=== PATIENT | male | born 1960 | race African-American/Black ===

== ENCOUNTER → 2016-07-13 | Outpatient (CLI) | payer OTHER ==
[2016-07-13 12:06] LABS: ABSOLUTE EOSINOPHILS # (AUTO) 0.2 10^3/uL (0.0-0.6); ABSOLUTE LYMPHOCYTES (AUTO) 1.4 10^3/uL (0.5-4.7); ABSOLUTE MONOCYTES (AUTO) 1.7 10^3/uL (0.1-1.4); BASOPHILS % (AUTO) 0.4 % (0-2); EOSINOPHILS % (AUTO) 1.7 % (0-6); HEMATOCRIT 44.8 % (37.9-51.0); HGB HCT DIFFERENCE 0.2; MEAN CORPUSCULAR HEMOGLOBIN 28.3 pg (27.0-33.4); MEAN CORPUSCULAR HGB CONC 33.5 g/dL (32.0-36.0); MEAN CORPUSCULAR VOLUME 85 fl (80-97); MONOCYTES % (AUTO) 16.2 % (3-13); RED BLOOD COUNT 5.29 10^6/uL (4.35-5.55); RED CELL DISTRIBUTION WIDTH 13.5 % (11.5-14.0); SEGMENTED NEUTROPHILS % (AUTO) 67.7 % (42-78); WHITE BLOOD COUNT 10.3 10^3/uL (4.0-10.5)
[2016-07-13 12:43] LABS: ALANINE AMINOTRANSFERASE 38 U/L (21-72); ALBUMIN 3.6 g/dL (3.5-5.0); ALKALINE PHOSPHATASE 90 U/L (38-126); ANION GAP 11 (5-19); ASPARTATE AMINO TRANSFERASE 22 U/L (17-59); BILIRUBIN,TOTAL 0.7 mg/dL (0.2-1.3); BLOOD UREA NITROGEN 14 mg/dL (7-20); CALCIUM 9.4 mg/dL (8.4-10.2); CARBON DIOXIDE 29 mmol/L (22-30); CHLORIDE 102 mmol/L (98-107); CHOLESTEROL 212.88 mg/dL (0-200); CREATININE RESULT 1.11 mg/dL (0.52-1.25); Direct HDL 46 mg/dL (>40); GLUCOSE 96 mg/dL (75-110); POTASSIUM 3.6 mmol/L (3.6-5.0); SODIUM 142.2 mmol/L (137-145); TOTAL PROTEIN 6.8 g/dL (6.3-8.2); TRIGLYCERIDES 97 mg/dL (<150)
[2016-07-13 12:54] LABS: DIRECT LDL 156 mg/dL (<100)
== END ==
LOC: OD 11:22
DX: I10 Essential (primary) hypertension (principal)
CPT/HCPCS: 36415; 80053; 80061; 83036; 84443; 85025

== ENCOUNTER → 2016-11-13 | Outpatient (CLI) | payer OTHER ==
--- NOTE | 2016-11-13 11:01 | EKG REPORT ---
SEVERITY:- NORMAL ECG - SINUS RHYTHM : Confirmed by: Laurence Zamora MD 13-Nov-2016 11:00:33
== END ==
LOC: CCC 09:22
DX: I10 Essential (primary) hypertension (principal)
CPT/HCPCS: 93005; 93010

== ENCOUNTER → 2017-04-02 | Outpatient (CLI) | payer OTHER ==
--- NOTE | 2017-04-02 09:37 | RADIOLOGY REPORT (SQ) ---
EXAM DESCRIPTION: CHEST PA/LAT COMPLETED DATE/TIME: 04/02/2017 9:14 am REASON FOR STUDY: ASTHMA COMPARISON: 07/06/2014. EXAM PARAMETERS: NUMBER OF VIEWS: two views TECHNIQUE: Digital Frontal and Lateral radiographic views of the chest acquired. RADIATION DOSE: NA LIMITATIONS: none FINDINGS: LUNGS AND PLEURA: No opacities, masses or pneumothorax. No pleural effusion. MEDIASTINUM AND HILAR STRUCTURES: No masses or contour abnormalities. HEART AND VASCULAR STRUCTURES: Heart normal size. No evidence for failure. BONES: No acute findings. HARDWARE: None in the chest. OTHER: No other significant finding. IMPRESSION: NO SIGNIFICANT RADIOGRAPHIC FINDING IN THE CHEST. TECHNICAL DOCUMENTATION: JOB ID: [id number] [email or web address]- All Rights Reserved
== END ==
LOC: RAD 08:56
DX: J45.909 Unspecified asthma, uncomplicated (principal)
CPT/HCPCS: 71020

== ENCOUNTER → 2017-04-23 | Outpatient (CLI) | payer OTHER ==
--- NOTE | 2017-04-23 12:16 | RADIOLOGY REPORT (SQ) ---
EXAM DESCRIPTION: ELBOW LEFT OVER 2 VIEWS COMPLETED DATE/TIME: 04/23/2017 11:56 am REASON FOR STUDY: PAIN IN LEFT ELBOW (M25.522) M25.522 PAIN IN LEFT ELBOW COMPARISON: None. NUMBER OF VIEWS: Four views. TECHNIQUE: AP, lateral, and both oblique radiographic images acquired of the left elbow. LIMITATIONS: None. FINDINGS: MINERALIZATION: Normal. BONES: No acute fracture. JOINT: No elbow joint effusion. 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 SOFT TISSUES: No soft tissue swelling. No foreign body. OTHER: Prominent bony spur at the triceps attachment to the olecranon IMPRESSION: Osteoarthritis left filled well. No acute fracture or malalignment. No joint effusion TECHNICAL DOCUMENTATION: JOB ID: [id number] [employer]- All Rights Reserved
== END ==
LOC: RAD 11:30
DX: M25.522 Pain in left elbow (principal); M19.022 Primary osteoarthritis, left elbow

== ENCOUNTER → 2017-08-25 | Outpatient (CLI) | payer MEDICAID ==
--- NOTE | 2017-08-25 12:54 | RADIOLOGY REPORT (SQ) ---
EXAM DESCRIPTION: KNEE LEFT 4 VIEWS COMPLETED DATE/TIME: 08/25/2017 11:12 am REASON FOR STUDY: PAIN IN RT/LT KNEE M25.561 PAIN IN RIGHT KNEE M25.562 PAIN IN LEFT KNEE COMPARISON: None. NUMBER OF VIEWS: Four views. TECHNIQUE: AP, lateral, and both oblique radiographic images acquired of the left knee. LIMITATIONS: None. FINDINGS: MINERALIZATION: Normal. BONES: No acute fracture or dislocation. Intramedullary calcifications are identified at the level o f the distal femur with the differential possibilities including a bone infarct or enchondroma. Othe r cartilaginous neoplasms cannot be excluded. MRI may be of value for further evaluation JOINT: Degenerative changes are identified at the level of the patella femoral compartment with osorio lar spurring. There is some minimal osteophytic lipping at the level of the medial compartment. SOFT TISSUES: No soft tissue swelling. No radio-opaque foreign body. OTHER: No other significant finding. IMPRESSION: No acute fracture or dislocation. Degenerative changes as noted above. Intramedullary calcifications at the level of the distal femur with differential possibilities as noted above. If f urther workup is deemed clinically warranted I would recommend MRI. Other findings as noted above TECHNICAL DOCUMENTATION: JOB ID: [id number] [employer]- All Rights Reserved Reading location - IP/workstation name: [email or web address]
--- NOTE | 2017-08-25 13:07 | RADIOLOGY REPORT (SQ) ---
EXAM DESCRIPTION: KNEE RIGHT 4 VIEWS COMPLETED DATE/TIME: 08/25/2017 11:12 am REASON FOR STUDY: PAIN IN RT/LT KNEE M25.561 PAIN IN RIGHT KNEE M25.562 PAIN IN LEFT KNEE COMPARISON: Left knee films dated 08/25/2017 NUMBER OF VIEWS: Four views. TECHNIQUE: AP, lateral, and both oblique radiographic images acquired of the right knee. LIMITATIONS: None. FINDINGS: MINERALIZATION: Normal. BONES: No acute fracture or dislocation. Intramedullary calcifications are identified at the level o f the distal femur which are similar in appearance to the left knee. Again the differential possibil ities would include a bone infarct versus enchondroma other cartilaginous neoplasms cannot be complet lizbeth excluded. Again MRI may be of value for further evaluation. JOINT: No effusion. SOFT TISSUES: No soft tissue swelling. No radio-opaque foreign body. OTHER: No other significant finding. IMPRESSION: No acute fracture dislocation. Intramedullary calcifications are identified at the leve l of the distal femur as noted above. If further workup is deemed clinically warranted I would recom mend MRI. Other findings as noted above. TECHNICAL DOCUMENTATION: JOB ID: [id number] [employer]- All Rights Reserved Reading location - IP/workstation name: [email or web address]
== END ==
LOC: OD 10:23
PROVIDERS: ATTEND Family Medicine
DX: M25.561 Pain in right knee (principal); M25.562 Pain in left knee

== ENCOUNTER 2018-02-28 17:20 | Emergency (ER) | payer MEDICAID ==
[2018-02-28] MEDS ORDERED: HYDROCHLOROTHIAZIDE 12.5 MG TABLET PO ONE ×3 (18:55→19:15)
--- NOTE | 2018-02-28 18:59 | ER Document Report ---
ED General - General Chief Complaint: High Blood Pressure Stated Complaint: BLOOD PRESSURE ISSUE Time Seen by Provider: 02/28/18 18:54 TRAVEL OUTSIDE OF THE [place] IN LAST 30 DAYS: No - HPI Patient complains to provider of: Elevated blood pressure medication refill Notes: Patient has been without his hydrochlorothiazide for the last few days is that there is recall of his hydrochlorothiazide. Patient states he has been unable to follow-up with primary care physician for another prescription and was unable to get any further medication from the pharmacy therefore patient came to the ER for further evaluation. States slightly elevated blood pressure however denies any fever chills nausea vomiting diarrhea head pain chest pain abdominal pain. Resting healthy upon my evaluation. - Related Data Allergies/Adverse Reactions: No Known Allergies Allergy (Verified 02/28/18 17:32) Past Medical History - Social History Smoking Status: Unknown if Ever Smoked Family History: Reviewed & Not Pertinent Review of Systems - Review of Systems Constitutional: Other - Hypertension medication refill EENT: No symptoms reported Cardiovascular: No symptoms reported Respiratory: No symptoms reported Gastrointestinal: No symptoms reported Genitourinary: No symptoms reported Male Genitourinary: No symptoms reported Musculoskeletal: No symptoms reported Skin: No symptoms reported Hematologic/Lymphatic: No symptoms reported Neurological/Psychological: No symptoms reported -: Yes All other systems reviewed and negative Physical Exam - Vital signs Vitals: Temp Pulse Resp BP Pulse Ox 98.2 F 56 L 16 167/93 H 98 02/28/18 17:52 02/28/18 17:52 02/28/18 17:52 02/28/18 17:52 02/28/18 17:52 Interpretation: Normal - General General appearance: Appears well, Alert - HEENT Head: Normocephalic, Atraumatic Eyes: Normal Pupils: PERRL - Respiratory Respiratory status: No respiratory distress Chest status: Nontender Breath sounds: Normal Chest palpation: Normal - Cardiovascular Rhythm: Regular Heart sounds: Normal auscultation Murmur: No - Abdominal Inspection: Normal Distension: No distension Bowel sounds: Normal Tenderness: Nontender Organomegaly: No organomegaly - Back Back: Normal, Nontender - Extremities General upper extremity: Normal inspection, Nontender, Normal color, Normal ROM , Normal temperature General lower extremity: Normal inspection, Nontender, Normal color, Normal ROM , Normal temperature, Normal weight bearing. No: Keshawn's sign - Neurological Neuro grossly intact: Yes Cognition: Normal Orientation: AAOx4 Minerva Coma Scale Eye Opening: Spontaneous [place] Coma Scale Verbal: Oriented Minerva Coma Scale Motor: Obeys Commands Bacova Coma Scale Total: 15 Speech: Normal Motor strength normal: LUE, RUE, LLE, RLE Sensory: Normal - Psychological Associated symptoms: Normal affect, Normal mood - Skin Skin Temperature: Warm Skin Moisture: Dry Skin Color: Normal Course - Re-evaluation Re-evalutation: 02/28/18 20:49 Patient was given dose of his hydrochlorothiazide here in a pill to take home. Prescription for soft chlorothiazide was brought to the patient. Patient was discharged on follow-up primary care physician. Patient otherwise asymptomatic hypertension - Vital Signs Vital signs: Temp Pulse Resp BP Pulse Ox 98.2 F 57 L 16 188/96 H 98 02/28/18 19:09 02/28/18 19:09 02/28/18 19:09 02/28/18 19:09 02/28/18 19:09 Discharge - Discharge Clinical Impression: Medication refill Hypertension Qualifiers: Hypertension type: essential hypertension Qualified Code(s): I10 - Essential ( primary) hypertension Disposition: HOME, SELF-CARE Instructions: High Blood Pressure ([facility]), Hydrochlorothiazide ([facility]) Additional Instructions: Please continue your medications as prescribed follow-up with your family physician. Return to ER symptoms worsen. Prescriptions: Hydrochlorothiazide 12.5 mg PO DAILY #30 tablet Forms: Return to Work
[2018-02-28 19:10] VITALS: BP 188/96
== END 2018-02-28 19:06 | disposition home or self-care (01) ==
LOC: ER 17:20
DX: I10 Essential (primary) hypertension (principal)
CPT/HCPCS: 99283

== ENCOUNTER 2018-08-12 20:24 | Emergency (ER) | payer MEDICAID ==
[2018-08-12 20:52] VITALS: BP 158/89
== END 2018-08-13 00:45 | disposition left against medical advice (07) ==
LOC: ER 20:24
DX: Z53.21 Procedure and treatment not carried out due to patient leaving prior to being seen by health care provider (principal); R05 Cough

== ENCOUNTER → 2019-01-04 | Outpatient (CLI) | payer MEDICAID ==
--- NOTE | 2019-01-04 16:31 | RADIOLOGY REPORT (SQ) ---
EXAM DESCRIPTION: FOOT LEFT COMPLETE COMPLETED DATE/TIME: 01/04/2019 4:21 pm REASON FOR STUDY: STRESS FRACTURE, LEFT TOE(S), INITIAL ENCOUNTER FOR FRACTURE M84.378A STRESS FRAC TURE, LEFT TOE(S), INITIAL ENCOUNTER FOR COMPARISON: None. NUMBER OF VIEWS: Three views. TECHNIQUE: AP, lateral and oblique radiographic images acquired of the left foot. LIMITATIONS: None. FINDINGS: MINERALIZATION: Normal. BONES: No acute fracture or dislocation. No worrisome bone lesions. JOINTS: No effusions. SOFT TISSUES: No soft tissue swelling. No foreign body. OTHER: No other significant finding. IMPRESSION: NEGATIVE STUDY OF THE LEFT FOOT. NO RADIOGRAPHIC EVIDENCE OF ACUTE INJURY. TECHNICAL DOCUMENTATION: JOB ID: [id number] [employer]- All Rights Reserved Reading location - IP/workstation name: [email or web address]
== END ==
LOC: OD 15:40
PROVIDERS: ATTEND Podiatrist Foot & Ankle Surgery
DX: M84.378A Stress fracture, left toe(s), initial encounter for fracture (principal)

== ENCOUNTER → 2019-03-07 | Outpatient (CLI) | payer MEDICAID ==
--- NOTE | 2019-03-07 10:21 | RADIOLOGY REPORT (SQ) ---
EXAM DESCRIPTION: FOOT LEFT COMPLETE COMPLETED DATE/TIME: 03/07/2019 10:08 am REASON FOR STUDY: STRESS FRACTURE, LEFT TOE(S), SUBS FOR FX W ROUTN HEAL M84.378D STRESS FRACTURE, LEFT TOE(S), SUBS FOR FX W ROUTN H COMPARISON: AP, oblique, lateral views of the left foot from 01/04/2019. NUMBER OF VIEWS: Three views. TECHNIQUE: AP, lateral and oblique radiographic images acquired of the left foot. LIMITATIONS: None. FINDINGS: MINERALIZATION: Normal. BONES: Corticated osseous fragments of the base of the 5th metatarsal, unchanged from 01/04/2019. The re is no acute fracture or dislocation. The tarsometatarsal alignment is preserved. JOINTS: 1st MTP osteoarthrosis. SOFT TISSUES: No soft tissue swelling or radiopaque foreign body. OTHER: Enthesophytes at the calcaneal insertion the plantar fascia and Achilles tendon and osteophyte s at the dorsal aspect of the talonavicular joint. IMPRESSION: No acute osseous abnormality of the left foot. The corticated osseous fragments at the base of the 5th metatarsal are unchanged from 01/04/2019 and could represent the sequela of prior inju ry. TECHNICAL DOCUMENTATION: JOB ID: [id number] [employer]- All Rights Reserved Reading location - IP/workstation name: [email or web address]
== END ==
LOC: OD 09:55
PROVIDERS: ATTEND Podiatrist Foot & Ankle Surgery
DX: M84.378D Stress fracture, left toe(s), subsequent encounter for fracture with routine healing (principal)

== ENCOUNTER → 2020-04-12 | Outpatient (CLI) | payer MEDICAID ==
--- NOTE | 2020-04-12 12:35 | RADIOLOGY REPORT (SQ) ---
EXAM DESCRIPTION: KNEE RIGHT 4 VIEWS IMAGES COMPLETED DATE/TIME: 04/12/2020 12:04 pm REASON FOR STUDY: PAIN IN RIGHT KNEE M25.562 PAIN IN LEFT KNEE M25.561 PAIN IN RIGHT KNEE COMPARISON: None. NUMBER OF VIEWS: Four views. TECHNIQUE: AP, lateral, and both oblique radiographic images acquired of the right knee. LIMITATIONS: None. FINDINGS: MINERALIZATION: Normal. BONES: Chondroid containing lesion in the distal femur either enchondroma or bone infarct. Less like ly chondrosarcoma. JOINT: No effusion. SOFT TISSUES: No soft tissue swelling. No radio-opaque foreign body. OTHER: No other significant finding. IMPRESSION: Chondroid containing lesion in the distal femur most likely bone infarct for enchondroma . Chondrosarcoma is less likely but not entirely excluded. TECHNICAL DOCUMENTATION: JOB ID: [id number] 2010 [employer]- All Rights Reserved Reading location - IP/workstation name: [email or web address]
--- NOTE | 2020-04-12 12:36 | RADIOLOGY REPORT (SQ) ---
EXAM DESCRIPTION: KNEE LEFT 4 VIEWS IMAGES COMPLETED DATE/TIME: 04/12/2020 12:04 pm REASON FOR STUDY: PAIN IN RIGHT KNEE, PAIN IN LEFT KNEE M25.562 PAIN IN LEFT KNEE M25.561 PAIN IN RIGHT KNEE COMPARISON: None. NUMBER OF VIEWS: Four views. TECHNIQUE: AP, lateral, and both oblique radiographic images acquired of the left knee. LIMITATIONS: None. FINDINGS: MINERALIZATION: Normal. BONES: Chondroid containing lesion in the distal femur consistent with bone infarct or enchondroma. There are no aggressive features. JOINT: Total joint arthroplasty. SOFT TISSUES: No soft tissue swelling. No radio-opaque foreign body. OTHER: No other significant finding. IMPRESSION: Prior total arthroplasty. Chondroid containing lesion in the distal femur most likely i nfarct or enchondroma. TECHNICAL DOCUMENTATION: JOB ID: [id number] 2010 [employer]- All Rights Reserved Reading location - IP/workstation name: [email or web address]
== END ==
LOC: OD 11:45
PROVIDERS: ATTEND Family Medicine
DX: M25.562 Pain in left knee (principal); M25.561 Pain in right knee